=== PATIENT | male | born 1940 | race Caucasian/White ===

== ENCOUNTER 2018-09-04 01:52 | Emergency (ER) | payer OTHER ==
[~2018-09-04] VITALS: Ht 182.9 cm; Wt 86.2 kg
[~2018-09-04 01:52] MED LIST: ACET325 PO; ALBU90OI INH; ASPI325 PO; Amaryl2 MG PO; Amoxicillin500 MG PO; Aspir-Trin325 MG PO; Biaxin500 MG PO; CEPH500 PO; CIPR500 PO; CITA20 PO; CYAN1000 PO; CYAN500 PO; FINA5 PO; FLUSAL1005 INH; FLUSAL2505 INH; GLIP5 PO; HYDACE5 PO; HYDR1TAB94 PO; JARDIANCE10 MG PO; LISI5 PO; METF500 PO; METF500C PO; METR500 PO; Norco 10-325 T1 EACH PO; Norco 5-325 Ta1 EACH PO; PRIM250 PO; PRIM50 PO; Pepcid20 MG PO; Percocet 5-3251 EACH PO; Pravachol40 MG PO; Pravastatin Sod40 MG PO; SERT25 PO; SERT50 PO; VITAMIN B122500 MCG PO; Zofran Odt4 MG PO; Zofran Odt4 MG SL
[2018-09-04 02:23] LABS: BASOPHILS ABSOLUTE AUTO 0.01 K/mm3 (0.00-0.23); BASOPHILS PERCENT AUTO 0 % (0-2); EOSINOPHILS ABSOLUTE AUTO 0.03 K/mm3 (0.00-0.68); EOSINOPHILS PERCENT AUTO 0 % (0-6); Hematocrit 30.6 % (37.0-53.0); IMMATURE GRAN ABSOLUTE AUTO 0.02 K/mm3 (0.00-0.10); IMMATURE GRAN PERCENT AUTO 0 % (0-1); LYMPHOCYTES PERCENT AUTO 9 % (21-46); MONOCYTES PERCENT AUTO 9 % (4-13); Mean Corpuscular HGB 24.9 pg (26.0-34.0); Mean Corpuscular HGB Conc 29.4 g/dL (31.5-36.5); Mean Corpuscular Volume 85 fL (80-100); Mean Platelet Volume 9.2 fL (9.1-12.4); NEUTROPHILS ABSOLUTE AUTO 5.47 K/mm3 (1.96-9.15); NEUTROPHILS PERCENT AUTO 81 % (41-73); Platelet Count 290 K/mm3 (150-400); RDW Coefficient Variation 13.8 % (11.7-14.2); Red Blood Cell Count 3.62 M/mm3 (4.30-5.90); White Blood Cell Count 6.73 K/mm3 (4.00-11.30)
[2018-09-04] MEDS ORDERED: OXYC10ER PO (02:40)
[2018-09-04 02:48] LABS: Alanine Aminotransfer (ALT/SGP 18 U/L (12-78); Albumin, Blood 2.4 g/dL (3.4-5.0); Albumin/Globulin Ratio 0.6 (0.8-1.8); Alk Phos 103 U/L (50-136); Anion Gap 6 mmol/L (6-16); Aspartate Aminotrans (AST/SGOT 39 U/L (12-37); Bilirubin, Total 0.2 mg/dL (0.1-1.0); Blood Urea Nitrogen 22 mg/dL (8-24); Bun/Creatinine Ratio 29.2 (12.0-20.0); CO2, Blood 29 mmol/L (21-32); Calcium, Blood 10.9 mg/dL (8.5-10.1); Chloride, Blood 100 mmol/L (98-108); Creatinine, Blood 0.75 mg/dL (0.60-1.20); Globulin, Blood 3.9 g/dL (2.2-4.0); Glomerular Filtration Rate >60 (60-); Glucose, Blood 155 mg/dL (70-99); Potassium, Blood 4.3 mmol/L (3.5-5.5); Sodium, Blood 135 mmol/L (136-145); Total Protein, Blood 6.3 g/dL (6.4-8.2); Troponin I <0.015 ng/mL (0.000-0.040)
[2018-09-04] MEDS ORDERED: Prednisone20 MG PO (05:20)
[2018-09-04] MEDS ORDERED: ERYT1OIN RIGHTEYE (05:20)
== END 2018-09-04 07:04 | disposition home or self-care (01) ==
LOC: ER 01:52
PROVIDERS: Emergency Medicine
DX: J44.1 Chronic obstructive pulmonary disease with (acute) exacerbation (principal); H10.023 Other mucopurulent conjunctivitis, bilateral; E11.9 Type 2 diabetes mellitus without complications; Z79.82 Long term (current) use of aspirin; Z79.84 Long term (current) use of oral hypoglycemic drugs; Z79.899 Other long term (current) drug therapy; Z79.52 Long term (current) use of systemic steroids; Z87.891 Personal history of nicotine dependence; Z98.890 Other specified postprocedural states
CPT/HCPCS: 71260; 80053; 84484; 85025; 93005; 93010; 96374; 99285-25; J2930; Q9967